=== PATIENT | male | born 1985 | race Caucasian/White ===

== ENCOUNTER 2018-01-12 21:24 | Emergency (ER) | payer OTHER ==
[2018-01-12 21:29] VITALS: BP 159/105
--- NOTE | 2018-01-12 21:53 | ED ---
Laceration/Wound HPI - HPI Summary HPI Summary: 32-year-old male presents with laceration to left index finger today. He states that he was cleaning the slicer and his apron caught the on button and it started to moving cut his left index finger. The area has no current active bleeding. Tetanus was last year. No numbness or tingling. Laceration is superficial. Located at the distal phalanx. - History of Current Complaint Stated Complaint: FINGER LAC Time Seen by Provider: 01/12/18 21:36 Pain Intensity: 6 - Allergy/Home Medications Allergies/Adverse Reactions: Allergies Allergy/AdvReac Type Severity Reaction Status Date / Time BEE STINGS Allergy ANAPHYLACTI Uncoded 01/12/18 21:29 C PMH/Surg Hx/FS Hx/Imm Hx Endocrine/Hematology History: Denies: Hx Diabetes, Hx Thyroid Disease Cardiovascular History: Reports: Hx Hypertension - RECENTLY DIAGNOSED- NO MEDICATION AT PRESENT TIME- DR. MACKEY([place]) FOLLOW Respiratory History: Denies: Hx Asthma, Hx Chronic Obstructive Pulmonary Disease (COPD) GI History: Reports: Hx Gastroesophageal Reflux Disease - WITH SPICY FOODS ON OCCASION Denies: Hx Ulcer Musculoskeletal History: Reports: Hx Arthritis - RIGHT WRIST Sensory History: Reports: Hx Contacts or Glasses - GLASSES Denies: Hx Hearing Aid Opthamlomology History: Reports: Hx Contacts or Glasses - GLASSES Neurological History: Reports: Hx Headaches - TX WITH IBUPROFEN, Hx Migraine - MORE OFTEN ATEEN- NONE IN THE LAST YEAR- TX WITH EXCEDRINE MIGRAINE - Surgical History Surgery Procedure, Year, and Place: A PROCEDURE A YOUNG CHILD Hx Anesthesia Reactions: No Infectious Disease History: No Infectious Disease History: Denies: Hx Hepatitis, Hx Human Immunodeficiency Virus (HIV), Traveled Outside the in Last 30 Days - Family History Known Family History: Negative: Diabetes - Social History Alcohol Use: Daily Alcohol Amount: one glass of wine daily Substance Use Type: Reports: Cocaine, Marijuana Smoking Status (MU): Heavy Every Day Tobacco Smoker Review of Systems Negative: Fever Negative: Chest Pain Negative: Shortness Of Breath Positive: Other - left index finger lac All Other Systems Reviewed And Are Negative: Yes Physical Exam Triage Information Reviewed: Yes Vital Signs On Initial Exam: Initial Vitals Temp Pulse Resp BP Pulse Ox 97.6 F 90 18 159/105 97 01/12/18 21:26 01/12/18 21:26 01/12/18 21:26 01/12/18 21:26 01/12/18 21:26 Vital Signs Reviewed: Yes Appearance: Positive: Well-Appearing Skin: Positive: Warm, Dry, Other - 1cm superficial laceration to left index finger distal phlanax Head/Face: Positive: Normal Head/Face Inspection Eyes: Positive: Normal, Conjunctiva Clear ENT: Positive: Pharynx normal Respiratory/Lung Sounds: Positive: Clear to Auscultation, Breath Sounds Present Cardiovascular: Positive: Normal, RRR Musculoskeletal: Positive: Strength/ROM Intact - left index finger, Other - good pulses, capillary refill<2 secs Neurological: Positive: Normal Psychiatric: Positive: Normal Procedures - Laceration/Wound Repair 1 Location: Other - left index finger Description: Linear Length, Depth and Shape: 1cm superficial Irrigated w/ Saline (ccs): 20 Closure: Skin Adhesive, SteriStrips Diagnostics - Vital Signs Vital Signs Temp Pulse Resp BP Pulse Ox 01/12/18 21:26 97.6 F 90 18 159/105 97 - Laboratory Lab Statement: Any lab studies that have been ordered have been reviewed, and results considered in the medical decision making process. Laceration Repair Course/Dx - Course Course Of Treatment: 32-year-old male presents with laceration to left index finger today. He states that he was cleaning the slicer and his apron caught the on button and it started to moving cut his left index finger. The area has no current active bleeding. Tetanus was last year. No numbness or tingling. Laceration is superficial. Located at the distal phalanx. On exam has 1 cm superficial laceration of distal phlanx of left index. Clean area and place glue. Told to keep the area dry. Patient understands and agrees with plan. - Differential Dx Differental Diagnoses: Abrasion, Avulsion, Laceration - Clinical Impression Provider Diagnoses: Laceration of left index finger Discharge - Sign-Out/Discharge Documenting (check all that apply): Discharge/Admit/Transfer - Discharge Plan Condition: Good Disposition: HOME Patient Education Materials: Skin Adhesive Care (ED) Referrals: No Primary Care Phys,NOPCP [Primary Care Provider] - Additional Instructions: Place ice on area Take Tylenol for pain as needed every 6 hours Keep dry for 24 hours Glue will fall off on own Avoid scrubbing area Return to ED if develop any signs of infection or any new or worsening symptoms - Billing Disposition and Condition Condition: GOOD Disposition: Home
== END 2018-01-12 22:00 | disposition home or self-care (01) ==
LOC: ED 21:24
DX: S61.211A Laceration without foreign body of left index finger without damage to nail, initial encounter (principal); W45.8XXA Other foreign body or object entering through skin, initial encounter; W27.8XXA Contact with other nonpowered hand tool, initial encounter; Y93.G1 Activity, food preparation and clean up; Y92.9 Unspecified place or not applicable; Z72.0 Tobacco use
CPT/HCPCS: 12001; 99281

== ENCOUNTER 2023-09-29 12:46 | Observation (INO) ==
[2023-09-29 14:11] LABS: ABS Basophils 0.1 10^3/uL (0.0-0.1); ABS Lymphocytes 1.5 10^3/uL (1.0-4.8); ABS Monocytes 1.2 10^3/uL (0.0-1.1); ABS Nucleated RBC 0.01 10^3/ul; Eosinophil % 0.3 %; Hematocrit 44.6 % (38-53); Hemoglobin 15.7 g/dL (13.2-16.3); Lymphocyte % 13.7 %; Mean Corpuscular Hemoglobin 34.6 pg (27-33); Mean Corpuscular Hgb Conc 35.3 g/dL (31-36); Mean Platelet Volume 8.9 fL (7.5-11.2); Nucleated Red Blood Cells % 0.1 %/100WBC (0.0-0.8); Platelet Count 157 10^3/uL (150-450); Red Blood Count 4.55 10^6/uL (4.06-5.63); Red Cell Distribution Width 13.2 % (12-17); White Blood Count 10.9 10^3/uL (3.6-10.2)
[2023-09-29 14:19] LABS: INR 0.99 (0.83-1.13)
[2023-09-29] MEDS: Lactated Ringers 1000 ml BAG 1,000 ML IV ONE ×2 (14:22→15:44)
[2023-09-29] MEDS: Ondansetron 4 mg VIAL 2 MG/ML 2 ml VIAL IV ONE (14:22)
[2023-09-29 14:56] LABS: Albumin 4.9 g/dL (3.2-5.2); Albumin/Globulin Ratio 1.4 (1-3); Calcium 10.4 mg/dL (8.6-10.3); Creatinine, Serum 0.73 mg/dL (0.67-1.17); Globulin 3.5 g/dL (2-4); Magnesium 1.7 mg/dL (1.9-2.7); Potassium 3.8 mmol/L (3.5-5.0); Total Bilirubin 1.4 mg/dL (0.2-1.0); Total Protein 8.4 g/dL (6.4-8.9); eGFR CKD-EPI 120.9 (>60)
[2023-09-29] MEDS ORDERED: Lorazepam PYXIS KEY PRN (15:10)
[2023-09-29 15:42] LABS: High Sensitivity Troponin 1 Hr 6 pg/mL (<20)
[2023-09-29] MEDS: LORazepam 2 mg VIAL 1 ml IV PUSH ONE (15:44)
[2023-09-29 16:07] LABS: Alcohol, S < 13 mg/dL (<13)
[2023-09-29 16:21] LABS: TSH Ultra Thyroid Stim Horm 3.66 mcIU/mL (0.34-5.60)
[2023-09-29] MEDS: Thiamine 100 MG/ML 2 ml VIAL 100 MG, Folic Acid IV 1 MG, Multiple Vitamin IV ADULT 10 M... IV ONE (16:47)
[2023-09-29] MEDS: Thiamine 100 MG/ML 2 ml VIAL (200 mg) IM ONE (17:06)
[2023-09-29] MEDS: Magnesium Sulfate 2 gm BAG 2 GM/50 ML BAG IVPB ONE (19:40)
[2023-09-29] MEDS: Nicotine PATCH 21 MG/24 HR PATCH TRANSDERM SCH (23:52)
[2023-09-29] MEDS: Nicotine GUM 4MG FRUIT FLAVOR PO PRN (23:53)
[2023-09-30 06:25] LABS: ABS Basophils 0.1 10^3/uL (0.0-0.1); ABS Eosinophils 0.3 10^3/uL (0.0-0.5); ABS Lymphocytes 1.7 10^3/uL (1.0-4.8); ABS Monocytes 0.9 10^3/uL (0.0-1.1); ABS Neutrophils 5.1 10^3/uL (1.5-7.6); Eosinophil % 3.3 %; Hematocrit 40.8 % (38-53); Lymphocyte % 20.8 %; Mean Corpuscular Hemoglobin 34.2 pg (27-33); Mean Corpuscular Hgb Conc 34.2 g/dL (31-36); Mean Corpuscular Volume 99.8 fL (80-97); Platelet Count 113 10^3/uL (150-450); Red Blood Count 4.09 10^6/uL (4.06-5.63); Red Cell Distribution Width 13.7 % (12-17); White Blood Count 8.1 10^3/uL (3.6-10.2)
[2023-09-30 06:45] LABS: Albumin 4.2 g/dL (3.2-5.2); Albumin/Globulin Ratio 1.4 (1-3); Calcium 9.1 mg/dL (8.6-10.3); Creatinine, Serum 0.74 mg/dL (0.67-1.17); Globulin 2.9 g/dL (2-4); Magnesium 2.2 mg/dL (1.9-2.7); Potassium 4.1 mmol/L (3.5-5.0); Total Bilirubin 1.3 mg/dL (0.2-1.0); Total Protein 7.1 g/dL (6.4-8.9); eGFR CKD-EPI 120.4 (>60)
[2023-09-30] MEDS: Multivitamins/Minerals TAB PO SCH (08:00)
[2023-10-01 06:10] LABS: ABS Basophils 0.1 10^3/uL (0.0-0.1); ABS Eosinophils 0.4 10^3/uL (0.0-0.5); ABS Lymphocytes 1.6 10^3/uL (1.0-4.8); ABS Monocytes 0.9 10^3/uL (0.0-1.1); ABS Neutrophils 5.6 10^3/uL (1.5-7.6); ABS Nucleated RBC 0.01 10^3/ul; Eosinophil % 4.8 %; Hemoglobin 14.4 g/dL (13.2-16.3); Lymphocyte % 18.2 %; Mean Corpuscular Hemoglobin 34.3 pg (27-33); Mean Corpuscular Hgb Conc 34.3 g/dL (31-36); Mean Corpuscular Volume 99.7 fL (80-97); Mean Platelet Volume 9.2 fL (7.5-11.2); Nucleated Red Blood Cells % 0.1 %/100WBC (0.0-0.8); Platelet Count 131 10^3/uL (150-450); Red Blood Count 4.21 10^6/uL (4.06-5.63); Red Cell Distribution Width 13.6 % (12-17); White Blood Count 8.6 10^3/uL (3.6-10.2)
[2023-10-01 06:27] LABS: Albumin 4.3 g/dL (3.2-5.2); Albumin/Globulin Ratio 1.4 (1-3); C Reactive Protein 5.33 mg/L (<8.01); Calcium 9.5 mg/dL (8.6-10.3); Creatinine, Serum 0.79 mg/dL (0.67-1.17); Magnesium 3.5 mg/dL (1.9-2.7); Potassium 4.2 mmol/L (3.5-5.0); Total Bilirubin 1.3 mg/dL (0.2-1.0); Total Protein 7.3 g/dL (6.4-8.9); eGFR CKD-EPI 118.1 (>60)
[2023-10-01 12:22] VITALS: BP 158/109
== END 2023-10-01 13:30 | disposition home or self-care (01) ==
LOC: EDHOLD 12:46 → ED 12:46 → SUATTDRO 18:38 → MED 23:23
PROVIDERS: ADMIT Internal Medicine; ATTEND Hospitalist

== ENCOUNTER 2024-05-11 13:39 | Inpatient (IN) ==
[2024-05-11 16:02] LABS: ABS Basophils 0.1 10^3/uL (0.0-0.1); ABS Lymphocytes 0.8 10^3/uL (1.0-4.8); ABS Monocytes 0.7 10^3/uL (0.0-1.1); ABS Neutrophils 8.2 10^3/uL (1.5-7.6); Eosinophil % 0.1 %; Hematocrit 43.2 % (38-53); Hemoglobin 14.7 g/dL (13.2-16.3); Lymphocyte % 8.6 %; Mean Corpuscular Hemoglobin 34.1 pg (27-33); Mean Corpuscular Volume 100.3 fL (80-97); Mean Platelet Volume 9.5 fL (7.5-11.2); Platelet Count 128 10^3/uL (150-450); Red Cell Distribution Width 12.9 % (12-17); White Blood Count 9.8 10^3/uL (3.6-10.2)
[2024-05-11 16:26] LABS: ALT 129 U/L (7-52); AST 163 U/L (13-39); Acetaminophen < 15 mcg/mL; Albumin 5.2 g/dL (3.2-5.2); Albumin/Globulin Ratio 1.5 (1-3); Alcohol, S < 13 mg/dL (<13); Alkaline Phosphatase 124 U/L (35-149); Anion Gap 18 mmol/L (2-16); Blood Urea Nitrogen 12 mg/dL (6-24); CO2 Carbon Dioxide 21 mmol/L (22-32); Calcium 9.6 mg/dL (8.6-10.3); Chloride 95 mmol/L (101-111); Creatinine, Serum 0.85 mg/dL (0.67-1.17); Globulin 3.4 g/dL (2-4); Glucose 116 mg/dL (70-100); Magnesium 1.9 mg/dL (1.9-2.7); Potassium 3.9 mmol/L (3.5-5.0); Salicylate < 2.50 mg/dL (<30); Sodium 134 mmol/L (135-145); Total Bilirubin 1.8 mg/dL (0.2-1.0); Total Protein 8.6 g/dL (6.4-8.9); eGFR CKD-EPI 115.5 (>60)
[2024-05-11 16:28] LABS: Urine Appearance Clear; Urine Bacteria Absent /HPF (Absent); Urine Bilirubin Negative (Negative); Urine Blood Negative (Negative); Urine Color Yellow; Urine Glucose 2+ (>=150 mg/dL) (Negative); Urine Ketones 3+ (Negative); Urine Nitrite Negative (Negative); Urine Protein 2+ (>=100 mg/dL) (Negative); Urine Red Blood Cell 1+(3-5/hpf) /HPF (0-Trace); Urine Specific Gravity 1.024 (1.002-1.030); Urine Squamous Epithelial Cell Present /HPF (Absent); Urine Urobilinogen 3+ (Negative); Urine White Blood Cell Trace(0-5/hpf) /HPF (0-Trace)
[2024-05-11 16:34] LABS: TSH Ultra Thyroid Stim Horm 1.51 mcIU/mL (0.34-5.60)
[2024-05-11 16:37] LABS: Urine Benzodiazepine Screen None Detected (None Detect); Urine Cannabinoids Screen Presumptive Positive (None Detect); Urine Opiates Screen None Detected (None Detect)
[2024-05-11] MEDS: diazePAM INJ CARPUJECT 5 MG/ML SYRINGE IV ONE (18:42)
[2024-05-11] MEDS: Nicotine PATCH 21 MG/24 HR PATCH TRANSDERM ONE (19:47)
[2024-05-11 20:15] LABS: Creatine Kinase 404 U/L (10-223)
[2024-05-11] MEDS: Thiamine 100 MG/ML 2 ml VIAL (200 mg) IV ONE (20:39)
[2024-05-12] MEDS: LORazepam 2 mg VIAL 1 ml IV PUSH PRN (01:02)
[2024-05-12] MEDS ORDERED: LORazepam 2 mg VIAL 1 ml IV PUSH PRN (01:14)
[2024-05-12] MEDS: Nicotine GUM 2MG FRUIT FLAVOR PO PRN (01:42)
[2024-05-12] MEDS ORDERED: Albuterol HFA INHALER 8 gm MDI INH PRN (02:01)
[2024-05-12] MEDS: diazePAM INJ CARPUJECT 5 MG/ML SYRINGE IV PRN (03:17)
[2024-05-12] MEDS: diazePAM INJ CARPUJECT 5 MG/ML SYRINGE IV ONE ×2 (03:17→04:59)
[2024-05-12] MEDS: diazePAM INJ CARPUJECT 5 MG/ML SYRINGE ONE (03:18)
[2024-05-12] MEDS ORDERED: diazePAM INJ CARPUJECT 5 MG/ML SYRINGE IV PRN ×2 (04:09→04:15)
[2024-05-12] MEDS ORDERED: Ketamine HCL 50 mg/ml 10 ml VIAL (500 MG) IM PRN (04:53)
[2024-05-12] MEDS: Lactated Ringers 1000 ml BAG 1,000 ML IV SCH (05:15)
[2024-05-12] MEDS: Propofol 10 mg/ml 100 ML BTL 1,000 MG/100 ML BTL IV SCH (05:30)
[2024-05-12] MEDS: Propofol 10 mg/ml 100 ML BTL 1,000 MG/100 ML BTL ONE (06:03)
[2024-05-12] MEDS: Rocuronium 50 mg VIAL 10 mg/ml 5 ml VIAL (50 mg) ONE ×2 (06:31→06:32)
[2024-05-12] MEDS: Succinylcholine 200 mg VIAL 20 mg/ml 10 ml VIAL (200 mg) ONE (06:32)
[2024-05-12] MEDS: Chlorhexidine MOUTHWASH 0.12% 15 ML UDC TOPICAL SCH (06:33)
[2024-05-12] MEDS: fentaNYL INFUSION 50 mcg/mL VL 2,500 MCG/50 ML VIAL IV SCH (06:44)
[2024-05-12] MEDS: Lactated Ringers 1000 ml BAG 1,000 ML IV ONE (07:15)
[2024-05-12 07:18] LABS: Hematocrit 41.7 % (38-53); Hemoglobin 14.6 g/dL (13.2-16.3); Mean Corpuscular Hemoglobin 35.1 pg (27-33); Mean Corpuscular Volume 100.2 fL (80-97); Red Blood Count 4.16 10^6/uL (4.06-5.63); Red Cell Distribution Width 13.2 % (12-17); White Blood Count 11.2 10^3/uL (3.6-10.2)
[2024-05-12 07:30] LABS: Albumin 4.9 g/dL (3.2-5.2); Albumin/Globulin Ratio 1.5 (1-3); Calcium 9.4 mg/dL (8.6-10.3); Creatinine, Serum 0.76 mg/dL (0.67-1.17); Globulin 3.2 g/dL (2-4); Potassium 3.5 mmol/L (3.5-5.0); Total Bilirubin 1.7 mg/dL (0.2-1.0); Total Protein 8.1 g/dL (6.4-8.9); eGFR CKD-EPI 119.5 (>60)
[2024-05-12 08:01] LABS: ABS Basophils 0.1 10^3/uL (0.0-0.1); ABS Eosinophils 0.1 10^3/uL (0.0-0.5); ABS Monocytes 1.4 10^3/uL (0.0-1.1); ABS Neutrophils 7.6 10^3/uL (1.5-7.6); Lymphocyte % 18.1 %; Platelet Count 94 10^3/uL (150-450)
[2024-05-12] MEDS: NS 0.9% IV ONE (08:32)
[2024-05-12] MEDS: PHENOBARBITAL IV ONE (08:32)
[2024-05-12] MEDS: Midazolam PREMIXBAG 1 MG/ML NS 100 ML IV SCH (09:29)
[2024-05-12] MEDS: fentaNYL 100 mcg/2 ml 50 MCG/ML VIAL IV SLOW PU ONE (09:29)
[2024-05-12] MEDS: Nicotine PATCH 21 MG/24 HR PATCH TRANSDERM SCH (09:38)
[2024-05-12] MEDS: Famotidine IV 10 MG/ML 2 ml VIAL (20 mg) IV SLOW PU SCH (09:38)
[2024-05-12] MEDS: Potassium Chloride LIQUID 20 MEQ/15 ML LIQUID NG TUBE ONE (09:39)
[2024-05-12] MEDS: Midazolam 5 mg/5 ml VIAL 1 mg/ml 5 ml VIAL (5 mg) IV SLOW PU ONE (15:13)
[2024-05-12] MEDS: Midazolam 5 mg/5 ml VIAL 1 mg/ml 5 ml VIAL (5 mg) ONE (17:13)
[2024-05-12] MEDS: Enoxaparin 40 MG/0.4 ML SYR SUBCUT SCH (19:51)
[2024-05-13] MEDS: Acetaminophen IV 1 GM/100ML 1,000 MG/100 ML BAG IV PRN ×2 (01:40→20:47)
[2024-05-13 04:48] LABS: Urine Appearance Turbid; Urine Bilirubin 1+ (Negative); Urine Blood Negative (Negative); Urine Color Yellow; Urine Glucose Negative (Negative); Urine Ketones 2+ (Negative); Urine Nitrite Negative (Negative); Urine Protein Trace (Negative); Urine Specific Gravity 1.033 (1.002-1.030); Urine Urobilinogen 1+ (Negative)
[2024-05-13 04:51] LABS: ABS Basophils 0.1 10^3/uL (0.0-0.1); ABS Eosinophils 0.3 10^3/uL (0.0-0.5); ABS Lymphocytes 1.9 10^3/uL (1.0-4.8); ABS Monocytes 1.2 10^3/uL (0.0-1.1); ABS Neutrophils 8.1 10^3/uL (1.5-7.6); ABS Nucleated RBC 0.01 10^3/ul; Eosinophil % 2.7 %; Hematocrit 39.2 % (38-53); Hemoglobin 13.3 g/dL (13.2-16.3); Lymphocyte % 16.5 %; Mean Corpuscular Hemoglobin 34.3 pg (27-33); Mean Corpuscular Volume 100.9 fL (80-97); Mean Platelet Volume 9.7 fL (7.5-11.2); Platelet Count 93 10^3/uL (150-450); Red Blood Count 3.88 10^6/uL (4.06-5.63); Red Cell Distribution Width 13.5 % (12-17); White Blood Count 11.5 10^3/uL (3.6-10.2)
[2024-05-13 05:24] LABS: Calcium 8.6 mg/dL (8.6-10.3); Creatinine, Serum 0.74 mg/dL (0.67-1.17); Magnesium 1.9 mg/dL (1.9-2.7); Potassium 3.1 mmol/L (3.5-5.0); eGFR CKD-EPI 120.4 (>60)
[2024-05-13 05:57] LABS: Phosphorus 3.9 mg/dL (2.5-5.0)
[2024-05-13] MEDS: Magnesium Sulfate 2 gm BAG 2 GM/50 ML BAG IVPB ONE (06:13)
[2024-05-13] MEDS: KCL 20 MEQ/100 ML IVPREMIX 20 MEQ/100 ML BAG IV SCH (06:45)
[2024-05-13] MEDS: Midazolam 5 mg/5 ml VIAL 1 mg/ml 5 ml VIAL (5 mg) IV SLOW PU ONE (07:30)
[2024-05-13] MEDS: Midazolam 5 mg/5 ml VIAL 1 mg/ml 5 ml VIAL (5 mg) IV SLOW PU PRN (08:00)
[2024-05-13] MEDS: Midazolam 5 mg/5 ml VIAL 1 mg/ml 5 ml VIAL (5 mg) ONE ×2 (08:35)
[2024-05-13] MEDS: PHENOBARBITAL IV ONE (08:46)
[2024-05-13] MEDS: NS 0.9% IV ONE (08:46)
[2024-05-13] MEDS: Acetaminophen IV 1 GM/100ML 1,000 MG/100 ML BAG IV ONE (14:40)
[2024-05-13 17:54] LABS: Calcium 8.1 mg/dL (8.6-10.3); Creatinine, Serum 1.15 mg/dL (0.67-1.17); Potassium 3.8 mmol/L (3.5-5.0); eGFR CKD-EPI 84.6 (>60)
[2024-05-13 21:28] LABS: PCO2 Arterial 33 mmHg (35-45); PO2 Arterial 82 mmHg (80-100)
[2024-05-13 23:21] LABS: Hematocrit 38.1 % (38-53); Hemoglobin 13.1 g/dL (13.2-16.3); Mean Corpuscular Hemoglobin 35.1 pg (27-33); Mean Corpuscular Hgb Conc 34.5 g/dL (31-36); Mean Corpuscular Volume 101.9 fL (80-97); Mean Platelet Volume 9.7 fL (7.5-11.2); Platelet Count 93 10^3/uL (150-450); Red Blood Count 3.74 10^6/uL (4.06-5.63); Red Cell Distribution Width 13.2 % (12-17); White Blood Count 11.8 10^3/uL (3.6-10.2)
[2024-05-14] MEDS ORDERED: Zosyn per Pharmacy NOTE FOLLOW UP SCH (01:00)
[2024-05-14 01:19] LABS: ABS Basophils 0.1 10^3/uL (0.0-0.1); ABS Eosinophils 0.2 10^3/uL (0.0-0.5); ABS Lymphocytes 0.6 10^3/uL (1.0-4.8); ABS Monocytes 1.4 10^3/uL (0.0-1.1); ABS Neutrophils 9.5 10^3/uL (1.5-7.6); Eosinophil % 1.9 %; Lymphocyte % 5.1 %
[2024-05-14] MEDS: NORMOSOL-R pH 7.4 1000 mL BAG 1,000 ML IV SCH (01:22)
[2024-05-14] MEDS: Piperacillin/Tazobac 3.375 BAG 3.375 GM/100 ML BAG IV ONE (01:34)
[2024-05-14] MEDS: ZOSYN 3.375 GM Q8H per EXTENDED INFUSION IV SCH (04:29)
[2024-05-14 05:22] LABS: Albumin 3.6 g/dL (3.2-5.2); Albumin/Globulin Ratio 1.4 (1-3); Creatinine, Serum 0.78 mg/dL (0.67-1.17); Globulin 2.6 g/dL (2-4); Magnesium 2.2 mg/dL (1.9-2.7); Potassium 3.6 mmol/L (3.5-5.0); Total Bilirubin 1.4 mg/dL (0.2-1.0); Total Protein 6.2 g/dL (6.4-8.9); eGFR CKD-EPI 118.5 (>60)
[2024-05-14 06:27] LABS: ABS Basophils 0.1 10^3/uL (0.0-0.1); ABS Eosinophils 0.2 10^3/uL (0.0-0.5); ABS Lymphocytes 1.3 10^3/uL (1.0-4.8); ABS Monocytes 1.4 10^3/uL (0.0-1.1); ABS Neutrophils 10.2 10^3/uL (1.5-7.6); Eosinophil % 1.3 %; Lymphocyte % 9.7 %
[2024-05-14 06:28] LABS: Macrocytosis 1+
[2024-05-14 06:42] LABS: Hematocrit 36.9 % (38-53); Hemoglobin 12.7 g/dL (13.2-16.3); Mean Corpuscular Hgb Conc 34.5 g/dL (31-36); Mean Corpuscular Volume 101.4 fL (80-97); Mean Platelet Volume 9.6 fL (7.5-11.2); Platelet Count 95 10^3/uL (150-450); Red Blood Count 3.64 10^6/uL (4.06-5.63); Red Cell Distribution Width 13.1 % (12-17); White Blood Count 13.1 10^3/uL (3.6-10.2)
[2024-05-14] MEDS: PHENOBARBITAL IV ONE (10:02)
[2024-05-14] MEDS: NS 0.9% IV ONE (10:02)
[2024-05-15 04:21] LABS: Hematocrit 34.1 % (38-53); Hemoglobin 11.8 g/dL (13.2-16.3); Mean Corpuscular Hemoglobin 35.3 pg (27-33); Mean Corpuscular Hgb Conc 34.7 g/dL (31-36); Mean Corpuscular Volume 101.9 fL (80-97); Mean Platelet Volume 9.3 fL (7.5-11.2); Platelet Count 119 10^3/uL (150-450); Red Blood Count 3.34 10^6/uL (4.06-5.63); Red Cell Distribution Width 13.8 % (12-17); White Blood Count 10.8 10^3/uL (3.6-10.2)
[2024-05-15 05:01] LABS: Albumin 3.2 g/dL (3.2-5.2); Albumin/Globulin Ratio 1.3 (1-3); Calcium 7.8 mg/dL (8.6-10.3); Creatinine, Serum 0.65 mg/dL (0.67-1.17); Globulin 2.4 g/dL (2-4); Potassium 3.5 mmol/L (3.5-5.0); Total Bilirubin 1.3 mg/dL (0.2-1.0); Total Protein 5.6 g/dL (6.4-8.9); eGFR CKD-EPI 125.2 (>60)
[2024-05-15 05:36] LABS: ABS Basophils 0.1 10^3/uL (0.0-0.1); ABS Eosinophils 0.6 10^3/uL (0.0-0.5); ABS Lymphocytes 1.5 10^3/uL (1.0-4.8); ABS Monocytes 1.8 10^3/uL (0.0-1.1); ABS Neutrophils 6.7 10^3/uL (1.5-7.6); Eosinophil % 5.9 %; Lymphocyte % 13.9 %; Macrocytosis 1+
[2024-05-15] MEDS: Lactulose 30 ml UDC NG TUBE ONE (05:37)
[2024-05-15] MEDS: KCL 20 MEQ/100 ML IVPREMIX 20 MEQ/100 ML BAG IV SCH (05:39)
[2024-05-15] MEDS: Furosemide 20 mg/2 ml IV VIAL IV SLOW PU ONE (06:10)
[2024-05-15] MEDS: Ondansetron 4 mg VIAL 2 MG/ML 2 ml VIAL ONE (12:08)
[2024-05-15] MEDS: Ondansetron 4 mg VIAL 2 MG/ML 2 ml VIAL IV PRN (12:08)
[2024-05-15] MEDS: diazePAM INJ CARPUJECT 5 MG/ML SYRINGE IV SCH (23:08)
[2024-05-16 04:33] LABS: Hematocrit 38.6 % (38-53); Hemoglobin 13.5 g/dL (13.2-16.3); Mean Corpuscular Hemoglobin 35.2 pg (27-33); Mean Corpuscular Volume 100.7 fL (80-97); Mean Platelet Volume 8.8 fL (7.5-11.2); Platelet Count 178 10^3/uL (150-450); Red Blood Count 3.83 10^6/uL (4.06-5.63); Red Cell Distribution Width 13.1 % (12-17); White Blood Count 10.9 10^3/uL (3.6-10.2)
[2024-05-16 04:40] LABS: ABS Basophils 0.1 10^3/uL (0.0-0.1); ABS Eosinophils 0.4 10^3/uL (0.0-0.5); ABS Lymphocytes 1.4 10^3/uL (1.0-4.8); ABS Nucleated RBC 0.01 10^3/ul; Lymphocyte % 13.1 %; Nucleated Red Blood Cells % 0.1 %/100WBC (0.0-0.8)
[2024-05-16 05:32] LABS: ALT 74 U/L (7-52); Albumin 3.7 g/dL (3.2-5.2); Albumin/Globulin Ratio 1.3 (1-3); Alkaline Phosphatase 110 U/L (35-149); Anion Gap 13 mmol/L (2-16); Blood Urea Nitrogen 8 mg/dL (6-24); CO2 Carbon Dioxide 25 mmol/L (22-32); Calcium 8.6 mg/dL (8.6-10.3); Chloride 99 mmol/L (101-111); Creatinine, Serum 0.58 mg/dL (0.67-1.17); Globulin 2.9 g/dL (2-4); Glucose 116 mg/dL (70-100); Magnesium 1.9 mg/dL (1.9-2.7); Sodium 137 mmol/L (135-145); Total Bilirubin 1.5 mg/dL (0.2-1.0); Total Protein 6.6 g/dL (6.4-8.9); eGFR CKD-EPI 129.6 (>60)
[2024-05-16 06:42] LABS: Potassium Redraw 4.1 mmol/L (3.5-5.0)
[2024-05-16] MEDS: NS 0.9% 500 ml BAG 500 ML IV ONE (10:12)
[2024-05-17 04:43] LABS: Hemoglobin 13.8 g/dL (13.2-16.3); Mean Corpuscular Hemoglobin 34.3 pg (27-33); Mean Corpuscular Hgb Conc 34.5 g/dL (31-36); Mean Corpuscular Volume 99.5 fL (80-97); Mean Platelet Volume 8.5 fL (7.5-11.2); Platelet Count 282 10^3/uL (150-450); Red Blood Count 4.01 10^6/uL (4.06-5.63); Red Cell Distribution Width 13.2 % (12-17); White Blood Count 13.2 10^3/uL (3.6-10.2)
[2024-05-17 05:14] LABS: Calcium 9.4 mg/dL (8.6-10.3); Creatinine, Serum 0.58 mg/dL (0.67-1.17); Magnesium 2.1 mg/dL (1.9-2.7); Potassium 3.7 mmol/L (3.5-5.0); eGFR CKD-EPI 129.6 (>60)
[2024-05-17] MEDS ORDERED: Ketamine HCL 50 mg/ml 10 ml VIAL (500 MG) ONE (05:18)
[2024-05-17] MEDS ORDERED: Rocuronium 50 mg VIAL 10 mg/ml 5 ml VIAL (50 mg) ONE (05:18)
[2024-05-17 06:21] LABS: ABS Basophils 0.1 10^3/uL (0.0-0.1); ABS Eosinophils 0.2 10^3/uL (0.0-0.5); ABS Lymphocytes 2.2 10^3/uL (1.0-4.8); ABS Neutrophils 7.8 10^3/uL (1.5-7.6); ABS Nucleated RBC 0.01 10^3/ul; Eosinophil % 1.1 %; Lymphocyte % 16.4 %; Nucleated Red Blood Cells % 0.1 %/100WBC (0.0-0.8)
[2024-05-17] MEDS: diazePAM INJ CARPUJECT 5 MG/ML SYRINGE ONE (06:53)
[2024-05-17] MEDS: diazePAM INJ CARPUJECT 5 MG/ML SYRINGE IV ONE (06:54)
[2024-05-17] MEDS ORDERED: diazePAM INJ CARPUJECT 5 MG/ML SYRINGE IV SCH (11:00)
[2024-05-17] MEDS: diazePAM INJ CARPUJECT 5 MG/ML SYRINGE IV PRN ×2 (15:18→17:44)
[2024-05-17] MEDS: ZOSYN 3.375 GM Q8H per EXTENDED INFUSION IV SCH (17:54)
[2024-05-18 08:31] LABS: Hematocrit 37.7 % (38-53); Hemoglobin 13.1 g/dL (13.2-16.3); Mean Corpuscular Hemoglobin 34.3 pg (27-33); Mean Corpuscular Hgb Conc 34.8 g/dL (31-36); Mean Corpuscular Volume 98.7 fL (80-97); Mean Platelet Volume 8.2 fL (7.5-11.2); Platelet Count 342 10^3/uL (150-450); Red Blood Count 3.82 10^6/uL (4.06-5.63); Red Cell Distribution Width 13.1 % (12-17); White Blood Count 11.2 10^3/uL (3.6-10.2)
[2024-05-18 09:04] LABS: Anion Gap 16 mmol/L (2-16); Blood Urea Nitrogen 10 mg/dL (6-24); CO2 Carbon Dioxide 22 mmol/L (22-32); Calcium 9.3 mg/dL (8.6-10.3); Chloride 102 mmol/L (101-111); Creatinine, Serum 0.73 mg/dL (0.67-1.17); Glucose 118 mg/dL (70-100); Potassium 3.6 mmol/L (3.5-5.0); Sodium 140 mmol/L (135-145); eGFR CKD-EPI 120.9 (>60)
[2024-05-18 09:29] LABS: Folate > 20.00 ng/mL (5.90-24.80)
[2024-05-18 09:30] LABS: Vitamin B12 1004 pg/mL (180-914)
[2024-05-18 09:52] LABS: C Reactive Protein 32.74 mg/L (<8.01)
[2024-05-18] MEDS: Potassium Chlor 20 meq TAB.ER PO ONE (11:13)
[2024-05-18] MEDS: cefTRIAXone 1 gm/50 mL D5W 1 GM/50 ML BAG IV SCH (11:39)
[2024-05-18] MEDS: Azithromycin 500 mg/250 ml NS 500 MG/250 ML BAG IVPB SCH (12:13)
[2024-05-18 12:42] LABS: Erythrocyte Sed Rate 107 mm/Hr (0-14)
[2024-05-19 07:53] LABS: Hematocrit 38.3 % (38-53); Hemoglobin 13.4 g/dL (13.2-16.3); Mean Corpuscular Hemoglobin 34.7 pg (27-33); Mean Corpuscular Hgb Conc 34.9 g/dL (31-36); Mean Corpuscular Volume 99.2 fL (80-97); Mean Platelet Volume 8.5 fL (7.5-11.2); Platelet Count 410 10^3/uL (150-450); Red Blood Count 3.86 10^6/uL (4.06-5.63); Red Cell Distribution Width 13.3 % (12-17); White Blood Count 11.1 10^3/uL (3.6-10.2)
[2024-05-19 08:37] LABS: Calcium 9.5 mg/dL (8.6-10.3); Creatinine, Serum 0.64 mg/dL (0.67-1.17); Magnesium 1.9 mg/dL (1.9-2.7); Potassium 3.5 mmol/L (3.5-5.0); eGFR CKD-EPI 125.8 (>60)
[2024-05-19] MEDS: Magnesium Sulfate 2 gm BAG 2 GM/50 ML BAG IVPB ONE (12:50)
[2024-05-19] MEDS: Potassium Chlor 20 meq TAB.ER PO ONE (12:50)
[2024-05-20 09:14] VITALS: BP 143/97
[2024-05-20 13:09] LABS: Calcium 9.6 mg/dL (8.6-10.3); Creatinine, Serum 0.71 mg/dL (0.67-1.17); Magnesium 1.9 mg/dL (1.9-2.7); Phosphorus 3.8 mg/dL (2.5-5.0); Potassium 4.1 mmol/L (3.5-5.0); eGFR CKD-EPI 121.9 (>60)
== END 2024-05-20 14:30 | disposition home or self-care (01) | DRG 775 ==
LOC: ED 13:39 → SUATTDRO 20:46 → EDHOLD 20:46 → MEDTELE 21:14 → ICU 05-12 04:18 → MED 05-17 14:36
PROVIDERS: ADMIT Internal Medicine; ATTEND Hospitalist